=== PATIENT | female | born 2000 | race Caucasian/White ===

== ENCOUNTER 2021-01-20 09:17 | Emergency (ER) | payer BC ==
[~2021-01-20] VITALS: Ht 160 cm; Wt 47.2 kg
[2021-01-20] MEDS ORDERED: IBUPROFEN 100 MG/5 ML LIQUID UDC PO ONE (09:45)
[2021-01-20] MEDS ORDERED: IBUPROFEN 400 MG TABLET ONE (09:46)
[2021-01-20] MEDS ORDERED: IBUPROFEN 200 MG TABLET ONE (09:46)
--- NOTE | 2021-01-20 09:56 | NUR ---
Pt states she was walking down stairs, caught foot and tripped forward. Pt c/o severe left foot pain from great toe to mid arshad/calf on medial side. PMS intact but movement limited by pain.
[2021-01-20] MEDS ORDERED: IBUP-1953 PO (10:20)
--- NOTE | 2021-01-20 10:30 | NUR ---
Wrapped pt's foot w/elastic bandage, PMS intact afterwards. Measured and gave crutches to pt. Pt demonstrated proper use. Gave pt RX and d/c instructions, pt verbalized understanding.
== END 2021-01-20 10:35 | disposition home or self-care (01) ==
LOC: ER 09:17
DX: S93.602A Unspecified sprain of left foot, initial encounter (principal); S93.402A Sprain of unspecified ligament of left ankle, initial encounter; W10.9XXA Fall (on) (from) unspecified stairs and steps, initial encounter; Y92.89 Other specified places as the place of occurrence of the external cause
CPT/HCPCS: 73610; 73630; A4663